=== PATIENT | female | born 1990 | race African-American/Black ===

== ENCOUNTER 2017-11-23 11:23 | Emergency (ER) | payer SELFPAY ==
[~2017-11-23] VITALS: Ht 162.6 cm; Wt 55.0 kg
[2017-11-23 14:15] VITALS: BP 110/68
== END 2017-11-23 14:20 | disposition home or self-care (01) ==
LOC: ER 12:11
DX: T40.1X1A Poisoning by heroin, accidental (unintentional), initial encounter (principal); F17.200 Nicotine dependence, unspecified, uncomplicated; F13.10 Sedative, hypnotic or anxiolytic abuse, uncomplicated; Y92.89 Other specified places as the place of occurrence of the external cause
CPT/HCPCS: 99283; Z7610